=== PATIENT | female | born 1960 | race Caucasian/White ===

== ENCOUNTER 2017-03-03 06:10 | Emergency (ER) | payer OTHER ==
[~2017-03-03 06:10] MED LIST: CEPH-460 PO
[2017-03-03 08:17] VITALS: BP 116/60; PULSE 73; RESP 16; TEMP 97.5; O2SAT 94
--- NOTE | 2017-03-03 10:03 | HHI.HP ---
HPI Primary Care Physician Unknown Chief Complaint Chest pain History of Present Illness This is a 56-year-old female that presents to the ED and [place] to evaluate chest discomfort with subsequent transferred to the chest and center to further evaluate her discomfort. Patient states that she was awoken o'clock this morning with a discomfort in his center chest that felt as if someone was sitting on her. 10 out of 10. She was short of breath and nauseous. No diaphoresis. Discomfort did not radiate. Found nothing to worsen or improve while she had a. She arrived in the ED about half an hour after onset of discomfort in the discomfort was starting to decreased about 8 out of 10. She states the discomfort resolved about one hour after arrival in the ED. She also recalls that Tuesday which was about 5 days ago she had similar episode 2. He was at night while lying in bed but she was awake. Each episode lasting about 45 minutes but no associated shortness of breath or nausea. Cannot recall ever having a stress test. Cannot recall prior cardiac catheterization. She states that she was told while she was in [place] that she had a heart attack at age 21 or 22. 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 Cannot recall been placed on medication for this. Denies recent illness. Denies fevers or chills. Review of Systems General: Patient denies fevers, chills recent, and recent travel HEENT: Patient denies headache, sore throat, difficulty swallowing. Cardiovascular: Has the chest discomfort as mentioned above. Denies sensation of heart beating rapidly or irregularly. No syncope. Denies diaphoresis. Respiratory: She was short of breath. Denies inspirational chest discomfort. Denies coughing wheezing or hemoptysis. GI: She was nauseous. Patient denies vomiting, diarrhea, abdominal pain, bloody stools. Musculoskeletal: Patient denies joint pain or edema. Denies calf pain or edema. Neurovascular: Patient denies numbness, tingling, weakness in extremities. Denies headache. Endocrine: Denies polyuria and polydipsia. Hematologic: Denies easy bruising. Skin: Denies rash or itching. Past Family Social History Allergies: Coded Allergies: aspirin (Verified Allergy, Intermediate, 03/03/17) Past Medical History Hypertension and hyperlipidemia but states she lost weight and was told by her physician that she no longer needed the medication. Medications were discontinued 8 months ago. Denies diabetes or CAD. Past Surgical History Tonsillectomy, tubal ligation, and hysterectomy. Reported Medications Reported Meds & Active Scripts Active Family History States that her father passed with submental myocardial infarction age 78. Prior that no knowledge of CAD. Social History Quit smoking 6 years ago but prior that she smoked about one quarter pack of cigarettes daily for 5 years. Denies alcohol or illicit drugs. Physical Exam Vital Signs Vital Signs Date Time Temp Pulse Resp B/P (MAP) Pulse Ox O2 Delivery O2 Flow Rate FiO2 03/03/17 08:17 97.5 73 16 116/60 (78) 94 Physical Exam GENERAL: This is a well-nourished, well-developed patient, in no apparent distress. Patient speaks in clear complete sentences. Patient is pleasant. HEENT: Head is atraumatic and normocephalic. Neck is supple without lymphadenopathy and trachea is midline. No JVD or carotid bruits. CARDIOVASCULAR: Regular rate and rhythm without murmurs, gallops, or rubs. RESPIRATORY: Clear to auscultation. Breath sounds equal bilaterally. No wheezes , rales, or rhonchi. Chest wall is tender reproducing the discomfort she has been having. No use of accessory muscles. GASTROINTESTINAL: Abdomen is nontender, nondistended. Abdomen soft. No obvious pulsatile mass or bruit. No CVA tenderness. Strong femoral pulses bilaterally. Normal bowel sounds in all quadrants. MUSCULOSKELETAL: Patient is moving upper and lower extremities freely. No calf tenderness or edema, no Homans sign. Strong pulses in upper and lower extremities. NEUROLOGICAL: Patient is alert and oriented. Cranial nerves 2-12 are grossly intact. No focal deficits and speech is clear. SKIN: No rash and turgor is normal. Imaging CT scan read by radiology: No PE. Chest x-ray nothing acute. Course EKGs have sinus rhythm without significant ST segment depressions or elevations. Caprini VTE Risk Assessment Caprini VTE Risk Assessment: No/Low Risk (score <= 1) Caprini Risk Assessment Model Point Value = 1 Point Value = 2 Point Value = 3 Point Value = 5 Age 41-60 Minor surgery BMI > 25 kg/m2 Swollen legs Varicose veins or History of unexplained or recurrent spontaneous Oral contraceptives or hormone replacement Sepsis (< 1 month) Serious lung disease, including pneumonia (< 1 month) Abnormal pulmonary function Acute myocardial infarction Congestive heart failure (< 1 month) History of inflammatory bowel disease Medical patient at bed rest Age 61-74 Arthroscopic surgery Major open surgery (> 45 min) Laparoscopic surgery (> 45 min) Malignancy Confined to bed (> 72 hours) Immobilizing plaster cast Central venous access Age >= 75 History of VTE Family history of VTE Factor V Leiden Prothrombin 22130T Lupus anticoagulant Anticardiolipin antibodies Elevated serum homocysteine Heparin-induced thrombocytopenia Other congenital or acquired thrombophilia Stroke (< 1 month) Elective arthroplasty Hip, pelvis, or leg fracture Acute spinal cord injury (< 1 month) Prophylaxis Regimen Total Risk Factor Score Risk Level Prophylaxis Regimen 0-1 Low Early ambulation 2 Moderate Order ONE of the following: *Sequential Compression Device (SCD) *Heparin 5000 units SQ BID 3-4 Higher Order ONE of the following medications: *Heparin 5000 units SQ TID *Enoxaparin/Lovenox 40 mg SQ daily (WT < 150 kg, CrCl > 30 mL/min) *Enoxaparin/Lovenox 30 mg SQ daily (WT < 150 kg, CrCl > 10-29 mL/min) *Enoxaparin/Lovenox 30 mg SQ BID (WT < 150 kg, CrCl > 30 mL/min) AND/OR *Sequential Compression Device (SCD) 5 or more Highest Order ONE of the following medications: *Heparin 5000 units SQ TID (Preferred with Epidurals) *Enoxaparin/Lovenox 40 mg SQ daily (WT < 150 kg, CrCl > 30 mL/min) *Enoxaparin/Lovenox 30 mg SQ daily (WT < 150 kg, CrCl > 10-29 mL/min) *Enoxaparin/Lovenox 30 mg SQ BID (WT < 150 kg, CrCl > 30 mL/min) AND *Sequential Compression Device (SCD) Assessment and Plan Assessment and Plan * Chest pain: Her discomfort appears to be atypical. They are readily reproducible on her chest wall. She had serial cardiac enzymes and EKGs for ruling out purposes. She'll be seen by Dr. Saucedo cardiology in the chest pain center and undergo a Kash protocol ETT and be discharged if stress test was nonischemic. She will need to follow-up with PCP. Patient is stable at this time. She is agreeable to this plan. Raphael Daniels Mar 03, 2017 10:03
[2017-03-03] MEDS ORDERED: MORPHINE SULFATE 4 MG/ML INJ IV PUSH ONE (10:15)
--- NOTE | 2017-03-03 10:24 | PD.CARD.PN ---
Subjective Subjective Remarks 56 yo lady presented with atypical CP. She has a hx of RA and of GI issues last evaluated about 2 years ago with upper and lower studies. Pt seen and examined, chart reviewed, discussed with PA labs negative EKG negative CXR negative ETT negative OK to DC with pain med to FU" as OP with PCP Objective Medications Current Medications Medications (Trade) Dose Ordered Sig/Yefri Route Start Time Stop Time Status Last Admin (Morphine Inj) 4 mg NOW ONCE IV PUSH 03/03/17 10:15 03/03/17 10:16 UNV Vital Signs / I&O Vital Signs Date Time Temp Pulse Resp B/P (MAP) Pulse Ox O2 Delivery O2 Flow Rate FiO2 03/03/17 08:17 97.5 73 16 116/60 (78) 94 Darron Saucedo MD Mar 03, 2017 10:24
--- NOTE | 2017-03-03 10:42 | HHI.DCPOC ---
Discharge Care Plan Diagnosis: (1) Chest pain, atypical Goals to Promote Your Health * To prevent worsening of your condition and complications * To maintain your health at the optimal level Directions to Meet Your Goals Take your medications as prescribed Follow your dietary instruction Follow activity as directed Keep your appointments as scheduled Take your immunizations and boosters as scheduled If your symptoms worsen call your PCP, if no PCP go to Urgent Care Center or Emergency Room Smoking is Dangerous to Your Health. Avoid second hand smoke Call the 24-hour hour crisis hotline for domestic abuse at Raphael Daniels Mar 03, 2017 10:42
--- NOTE | 2017-03-03 13:28 | TR ---
Date Performed: 03/03/2017 Time Performed: 09:43:19 DOCTOR: Darron Saucedo DRUG LIST: CLINICAL HISTORY: REASON FOR TEST: REASON FOR ENDING: OBSERVATION: CONCLUSION: BIANKA PROTOCOL. CHEST DISCOMFORT DID NOT WORSEN DURING STRESS TEST. TEST STOPPED AFT ER REACHING GOAL HR SECONDARY TO SOB AND LEG FATIGUE.Maximum TH=183 % Max HR Achieved=86.0% Maximum B P=126/68 Total Exercise Time=4:19 COMMENTS: Pt developed mild upsloping ST depression in the inferior-lateral leads with no worste johan of CP. There is no definitive changes of ischemia.
== END 2017-03-03 11:57 | disposition home or self-care (01) ==
LOC: NEDDLT 06:10 → UNDOADMOB 06:20 → NEPGCP 06:20 → UNDODISOB 11:57 → NEPG 11:57
DX: R07.89 Other chest pain (principal); R06.02 Shortness of breath; R11.0 Nausea
CPT/HCPCS: 71010; 71275; 80048; 82550; 83690; 83735; 84484; 85025; 85379; 85610; 85730; 93005; 93017; 96374; 99285; J2270; Q9967